=== PATIENT | female | born 1975 | race Caucasian/White ===

== ENCOUNTER → 2017-01-31 | Outpatient (CLI) | payer OTHER ==
[2017-01-31 10:08] LABS: eGFR (African) > 60; eGFR (Non-African) > 60
== END ==
LOC: LAB 09:19
PROVIDERS: ATTEND Family Medicine
DX: R53.83 Other fatigue (principal); R63.5 Abnormal weight gain; Z00.00 Encounter for general adult medical examination without abnormal findings; Z13.6 Encounter for screening for cardiovascular disorders
CPT/HCPCS: 36415; 80053; 80061; 84439; 84443

== ENCOUNTER 2017-07-08 21:29 | Emergency (ER) | payer OTHER ==
--- NOTE | 2017-07-08 22:29 | ED Physician Documentation ---
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 she has multiple GI chronic complaints, and has had cholecystectomy, takes GERD meds x 10 yrs, never with EGD, had diarrhea yesterday, has chronic dumping syndrome, she has no other symptoms except epigastric fullness. She is anxious about this. Onset: hours Duration: waxing, waning Timing: better Context: denies: out of country travel, bad food, recent trauma Severity: mild Quality: pain, fullness Associated Symptoms: none, diarrhea (x yesterday) Exacerbated by: nothing Relieved by: nothing Further Comments: no - ROS CONST: no problems GI/: none CVS/RESP: none EYES/ENT: none MS/SKIN/LYMPH: none NEURO/PSYCH: none - SOCIAL HX Smoking History: non-smoker Alcohol Use: none Drug Use: none - FAMILY HX Family History: CAD - PAST HX Past History: none Ischemic Bowel Risk Factors: none Other History: none Surgeries/Procedures: cholecystectomy, Allergies/Adverse Reactions: Allergies Allergy/AdvReac Type Severity Reaction Status Date / Time Penicillins Allergy Intermediate Itchy Skin Verified 07/08/17 22:29 - REVIEWED ASSESSMENTS Nursing Assessment Reviewed: Yes Vitals Reviewed: Yes ED Results Lab/Radiology - Lab Results Lab Results: ECG NSR Abdominal Pain Physical Exam - Physical Exam General Appearance: no acute distress, alert, anxious EENT: ENT inspection normal, pharynx normal, no signs of dehydration NECK: normal inspection RESPIRATORY: no resp distress, chest non-tender, breath sounds normal CVS: reg rate & rhythm, heart sounds normal, equal pulses ABDOMEN: soft, normal bowel sounds SKIN: warm/dry EXTREMITIES: non-tender NEURO: oriented X3, mood/affect nml, cognition normal Discharge Clincal Impression: Chronic GERD IBS (irritable bowel syndrome) Qualifiers: Irritable bowel syndrome type: with diarrhea Qualified Code(s): K58.0 - Irritable bowel syndrome with diarrhea Referrals: Diane Lux MD [Primary Care Provider] - 2 Days Condition: Good Disposition: 01 HOME, SELF-CARE Decision to Admit: NO Date of Decison to Admit: 07/08/17 Decision Time: 22:33
[2017-07-08 22:41] VITALS: BP 110/71
== END 2017-07-08 22:45 | disposition home or self-care (01) ==
LOC: ED 21:29
DX: K58.0 Irritable bowel syndrome with diarrhea (principal); R07.89 Other chest pain
CPT/HCPCS: 99283